=== PATIENT | female | born 1995 | race Caucasian/White ===

== ENCOUNTER 2024-04-14 16:53 | Emergency (ER) | payer SELFPAY ==
[2024-04-14 17:00] VITALS: BP 134/70; PULSE 95; TEMP 37.1; O2SAT 99; BMI 42.3
--- NOTE | 2024-04-14 17:07 | US_ITS ---
The [address] [address] Patient Name: SARAH EMERY MRN: [id number] date: 1995 Sex: F Assigned Patient Location: ER Current Patient Location: Accession/Order Number: [id number] Exam Date: 04/14/2024 17:55 Report Date: 04/14/2024 19:14 At the request of: DONTE ORNELAS Procedure: US venous doppler LE RT EXAM: US venous doppler LE RT HISTORY: right leg swelling COMPARISON: None. TECHNIQUE: Multiple sonographic images of the deep veins of the right lower extremity were obtained, supplemented with Doppler. FINDINGS: The deep veins of the lower extremity are fairly well visualized from the groin to the mid calf. No filling defect is identified to indicate a thrombus. There is normal compression augmentation to flow throughout. Slightly distal in the lower calf is a focal area of tenderness which demonstrates some edema without a cystic or solid mass. US/US venous doppler LE RT IMPRESSION: There is no direct or indirect evidence of deep vein thrombosis in the right lower extremity at this time. Electronically authenticated by: SHEKHAR RAMEY Date: 04/14/2024 19:14
--- NOTE | 2024-04-14 17:09 | ED_ITS ---
HPI - Extremity Problem General Chief complaint: Extremity Problem, Nontraumatic Stated complaint: Lower Extremity Pain, Bite Time Seen by Provider: 04/14/24 16:54 Source: patient Mode of arrival: walk-in Limitations: no limitations History of Present Illness HPI Narrative: Patient is a 28-year-old female who presents to the emergency department for evaluation of right lower extremity swelling and redness for the last week. She states initially it started as a small firm red area that was itching and burning. She states in the last several days the swelling has gotten significantly worse. No fevers or vomiting. She is not diabetic. She denies a possibility of . No medications taken prior to arrival. Related Data Previous Rx's ?Medication ?Instructions ?Recorded cephalexin 500 mg capsule 500 mg PO Q8H 10 days #30 caps 04/14/24 hydroxyzine HCl 25 mg tablet 25 mg PO Q6H PRN itching #20 tabs 04/14/24 ketorolac 10 mg tablet 10 mg PO TID PRN pain #10 tabs 04/14/24 ondansetron 4 mg disintegrating 4 mg PO Q6H PRN nausea and 04/14/24 tablet vomiting #12 tabs sulfamethoxazole 800 1 tab PO BID 10 days #20 tabs 04/14/24 mg-trimethoprim 160 mg tablet (Bactrim DS) Allergies Allergy/AdvReac Type Severity Reaction Status Date / Time No Known Drug Allergies Allergy Verified 04/14/24 17:00 Review of Systems ROS Constitutional Denies: fever or chills Ears, nose, mouth, and throat Denies: throat pain or nasal congestion Respiratory Denies: shortness of breath Gastrointestinal Denies: nausea or vomiting Musculoskeletal Denies: back pain or neck pain Integumentary/Breast Denies: rash Hematologic/Lymphatic Denies: easy bruising or easy bleeding PFSH PFSH Social History Little interest or pleasure in doing things: not at all Feeling down, depressed, or hopeless: not at all Exam Narrative Exam Narrative: Gen.: Awake, alert, in no distress Head: Normocephalic, atraumatic ENT: Moist mucous membranes Respiratory: No respiratory distress Extremities: Right lower extremity is moderately edematous compared to the left lower extremity distal to the knee. Calves are soft and nontender bilaterally. Right distal calf with anterior area of erythema and induration, no fluctuance. No open wounds or drainage. Faint blanching erythema extending around the distal calf. No extension over the ankle or foot of the right lower extremity. No red streaking to the knee proximally Psych: Normal mood and affect Neuro: No focal neuro deficit Skin: Warm, dry, intact Constitutional Vital Signs, click to edit/add: Last Vital Signs Temp 98.7 F 04/14/24 17:00 Pulse 88 04/14/24 18:44 Resp 20 04/14/24 18:44 BP 134/70 04/14/24 17:00 Pulse Ox 9 L 04/14/24 18:44 O2 Del Method Room Air 04/14/24 18:44 Course Vital Signs Vital signs: Vital Signs Temperature 98.7 F 04/14/24 17:00 Pulse Rate 95 H 04/14/24 17:00 Respiratory Rate 18 04/14/24 17:00 Blood Pressure 134/70 04/14/24 17:00 Pulse Oximetry 99 04/14/24 17:00 Oxygen Delivery Method Room Air 04/14/24 17:00 Temperature 98.7 F 04/14/24 17:00 Pulse Rate 88 04/14/24 18:44 Respiratory Rate 20 04/14/24 18:44 Blood Pressure 134/70 04/14/24 17:00 Pulse Oximetry 9 L 04/14/24 18:44 Oxygen Delivery Method Room Air 04/14/24 18:44 MDM - Extremity (Nontraumatic) MDM Narrative Medical decision making narrative: Patient treated with IV Ancef, Toradol and Solu-Medrol in the ER. Exam is consistent with cellulitis of the right lower extremity. Ultrasound is unremarkable and lab studies show elevated inflammatory markers with white blood cell count 12 and normal lactic acid. Patient will be treated with Bactrim, Keflex, Atarax for itching and Toradol for comfort. She was encouraged to elevate the leg. Follow-up with PCP and return to the emergency department if symptoms change or worsen SUPERVISED APC VISIT, PHYSICIAN ATTESTATION: Based on the medical record the care appears appropriate. ? Medical Records Attestation: I reviewed the patient's medical records. Lab Data Attestation: I reviewed the patient's lab results. Labs: Lab Results 09/17/24 09/17/24 Range/Units 17:28 17:43 WBC 12.0 H (4.0-11.0) 10^3/uL RBC 4.44 (4.20-5.40) 10^6/uL Hgb 13.5 (12.0-16.0) g/dL Hct 40.7 (36.0-48.0) % MCV 91.7 (81.0-99.0) fL MCH 30.4 (26.7-34.0) pg MCHC 33.2 (29.9-35.2) g/dL RDW 13.1 (11.0-15.0) % Plt Count 287 (150-450) 10^3/uL MPV 9.8 (9.5-13.5) fL Neut % (Auto) 79.5 H (43.0-75.0) % Lymph % (Auto) 14.6 L (20.5-60.0) % [place] % (Auto) 4.5 (1.7-12.0) % Eos % (Auto) 0.3 L (0.9-7.0) % Baso % (Auto) 0.3 (0.2-2.0) % Neut # (Auto) 9.5 H (1.4-6.5) 10^3/uL Lymph # (Auto) 1.8 (1.2-3.8) 10^3/uL [place] # (Auto) 0.5 (0.3-0.8) 10^3/uL Eos # (Auto) 0.0 (0.0-0.7) 10^3/uL Baso # (Auto) 0.0 (0.0-0.1) 10^3/uL Abs Immat Gran (auto) 0.10 H (0.00-0.03) 10^3/uL Imm/Tot Granulo (auto) 0.8 H (0.0-0.5) % ESR 52 H (<=20) mm/hr Sodium 134 L (136-145) mmol/L Potassium 3.6 (3.5-5.1) mmol/L Chloride 102 (98-107) mmol/L Carbon Dioxide 25.9 (21.0-32.0) mmol/L Anion Gap 9.7 BUN 9.0 (7.0-18.0) mg/dL Creatinine 0.74 (0.55-1.02) mg/dL Est GFR ( Amer) >60 (>=60) Est GFR (Non-Af Amer) >60 (>=60) BUN/Creatinine Ratio 12.2 Glucose 83 (74-106) mg/dL Lactate 0.9 (0.4-2.0) mmol/L Calcium 8.6 (8.5-10.1) mg/dL Total Bilirubin 0.3 (0.2-1.0) mg/dL AST 18 (15-37) U/L ALT 20 (14-59) U/L Alkaline Phosphatase 102 (46-116) U/L C-Reactive Protein 2.72 H (<=0.50) mg/dL Total Protein 7.2 (6.4-8.2) g/dL Albumin 3.5 (3.4-5.0) g/dL Globulin 3.7 g/dL Albumin/Globulin Ratio 0.9 Imaging Data Venous US: Radiologist's impression: ITS Impressions Venous Doppler Study 04/14/24 17:07 IMPRESSION: There is no direct or indirect evidence of deep vein thrombosis in the right lower extremity at this time. Electronically authenticated by: SHEKHAR RAMEY Date: 04/14/2024 19:14 Discharge Plan Discharge Chief Complaint: Extremity Problem, Nontraumatic Clinical Impression: Cellulitis Patient Disposition: Home, Self-Care Time of Disposition Decision: 18:35 Condition: Good Prescriptions / Home Meds: New sulfamethoxazole-trimethoprim [Bactrim DS] 800-160 mg tablet 1 tab PO BID 10 Days Qty: 20 0RF ketorolac 10 mg tablet 10 mg PO TID PRN (Reason: pain) Qty: 10 0RF cephalexin 500 mg capsule 500 mg PO Q8H 10 Days Qty: 30 0RF hydroxyzine HCl 25 mg tablet 25 mg PO Q6H PRN (Reason: itching) Qty: 20 0RF ondansetron 4 mg tablet,disintegrating 4 mg PO Q6H PRN (Reason: nausea and vomiting) Qty: 12 0RF Print Language: Kazakh Instructions: Cellulitis (ED), Warm Compress or Soak (ED) Referrals: Mark Gray MD [Primary Care Provider] - 1 week Discharge Date/Time: 04/14/24 18:59
[2024-04-14] MEDS: CEFAZOLIN SODIUM/DEXTROSE,ISO 2 GM/50 ML PIGGYBACK IV (17:37)
[2024-04-14] MEDS: KETOROLAC TROMETHAMINE 30 MG/ML VIAL IVP (17:38)
[2024-04-14] MEDS: METHYLPREDNISOLONE SOD SUCC PF 125 MG/2 ML VIAL IVP (17:38)
[2024-04-14 17:39] LABS: Basophils Percent Auto 0.3 % (0.2-2.0); Eosinophils Percent Auto 0.3 % (0.9-7.0); Hematocrit 40.7 % (36.0-48.0); Hemoglobin 13.5 g/dL (12.0-16.0); Immature Granulocytes Pct Auto 0.8 % (0.0-0.5); Lymphocytes Absolute Auto 1.8 10^3/uL (1.2-3.8); Lymphocytes Percent Auto 14.6 % (20.5-60.0); Mean Corpuscular HGB Conc 33.2 g/dL (29.9-35.2); Mean Corpuscular Hemoglobin 30.4 pg (26.7-34.0); Mean Corpuscular Volume 91.7 fL (81.0-99.0); Mean Platelet Volume 9.8 fL (9.5-13.5); Monocytes Absolute Auto 0.5 10^3/uL (0.3-0.8); Monocytes Percent Auto 4.5 % (1.7-12.0); Neutrophils Absolute Auto 9.5 10^3/uL (1.4-6.5); Neutrophils Percent Auto 79.5 % (43.0-75.0); Platelet Count 287 10^3/uL (150-450); Red Blood Count 4.44 10^6/uL (4.20-5.40); Red Cell Distribution Width 13.1 % (11.0-15.0)
[2024-04-14 18:04] LABS: Lactate/Lactic Acid 0.9 mmol/L (0.4-2.0)
[2024-04-14 18:17] LABS: Erythrocyte Sedimentation Rate 52 mm/hr (<=20)
[2024-04-14 18:22] LABS: Alanine Aminotransferase 20 U/L (14-59); Albumin Globulin Ratio 0.9; Albumin Level 3.5 g/dL (3.4-5.0); Alkaline Phosphatase 102 U/L (46-116); Anion Gap 9.7; Aspartate Amino Transferase 18 U/L (15-37); BUN Creatinine Ratio 12.2; Bilirubin Total 0.3 mg/dL (0.2-1.0); C Reactive Protein 2.72 mg/dL (<=0.50); Calcium 8.6 mg/dL (8.5-10.1); Carbon Dioxide 25.9 mmol/L (21.0-32.0); Chloride 102 mmol/L (98-107); Estimated GFR (African America >60 (>=60); Estimated GFR (Non-African Ame >60 (>=60); Globulin 3.7 g/dL; Glucose 83 mg/dL (74-106); Potassium 3.6 mmol/L (3.5-5.1); Sodium 134 mmol/L (136-145); Total Protein 7.2 g/dL (6.4-8.2)
[2024-04-14 18:44] VITALS: PULSE 88; O2SAT 9
== END 2024-04-14 18:59 | disposition home or self-care (01) ==
PROVIDERS: Physician Assistant; Emergency Provider Emergency Medicine; PCP Family Medicine
DX: L03.115 Cellulitis of right lower limb (principal)
CPT/HCPCS: 36415; 80053; 83605; 85025; 85652; 86140; 93971; 96365; 96375; 99285; J0690; J1885; J2919

== ENCOUNTER 2024-04-20 07:11 | Observation (INO) | payer SELFPAY ==
[2024-04-20] VITALS (23 sets, daily range): BP systolic 92–170; BP diastolic 59–128; PULSE 70–129; TEMP 36.7–38.7; O2SAT 92–100; BMI 42.4; BMI 39.5
--- NOTE | 2024-04-20 07:29 | ECG_ITS ---
The [facility] Test Date: 2024-04-20 Pat Name: SARAH EMERY Department: Room: - Gender: Female District Sales Representative: : 1995 Requested By: EDY THAKUR Order Number: [id number] Reading MD: JASWANT LEON Measurements Intervals [place] Rate: 117 P: 49 ND: 118 QRS: 57 QRSD: 88 T: 45 QT: 292 QTc: 361 Interpretive Statements 1120 Sinus tachycardia 2210 Short ND interval 9150 abnormal ECG No previous ECG available for comparison Electronically Signed On 04-20-2024 22:37:51 EDT by JASWANT LEON
[2024-04-20 07:35] LABS: Hematocrit 40.9 % (36.0-48.0); Hemoglobin 13.9 g/dL (12.0-16.0); Mean Corpuscular Hemoglobin 29.9 pg (26.7-34.0); Mean Platelet Volume 10.1 fL (9.5-13.5); Platelet Count 210 10^3/uL (150-450); Red Blood Count 4.65 10^6/uL (4.20-5.40); Red Cell Distribution Width 13.2 % (11.0-15.0); White Blood Count 6.8 10^3/uL (4.0-11.0)
[2024-04-20 07:49] LABS: INR 1.11; Prothrombin Time 11.6 sec (9.0-11.6)
[2024-04-20 07:52] LABS: HCG Qualitative NEGATIVE (NEGATIVE); Internal Control Within Normal Limits
[2024-04-20] MEDS: METHYLPREDNISOLONE SOD SUCC PF 125 MG/2 ML VIAL IVP (07:52)
[2024-04-20] MEDS: ONDANSETRON PF 4 MG/2 ML VIAL IV (07:52)
[2024-04-20] MEDS: 0.9 % SODIUM CHLORIDE 1,000 ML 1000 ML IV (07:52)
[2024-04-20 07:53] LABS: Alanine Aminotransferase 19 U/L (14-59); Albumin Globulin Ratio 0.8; Albumin Level 3.3 g/dL (3.4-5.0); Alkaline Phosphatase 94 U/L (46-116); Aspartate Amino Transferase 21 U/L (15-37); BUN Creatinine Ratio 12.2; Bilirubin Total 0.4 mg/dL (0.2-1.0); Calcium 8.1 mg/dL (8.5-10.1); Carbon Dioxide 23.8 mmol/L (21.0-32.0); Chloride 98 mmol/L (98-107); Estimated GFR (African America >60 (>=60); Estimated GFR (Non-African Ame >60 (>=60); Globulin 3.9 g/dL; Glucose 109 mg/dL (74-106); Potassium 3.8 mmol/L (3.5-5.1); Sodium 131 mmol/L (136-145); Total Protein 7.2 g/dL (6.4-8.2)
[2024-04-20] MEDS: CLINDAMYCIN PHOSPHATE/D5W 600 MG/50 ML PREMIX 100 MG IV ×3 (07:53→19:42)
[2024-04-20 07:56] LABS: Lactate/Lactic Acid 1.6 mmol/L (0.4-2.0)
--- NOTE | 2024-04-20 07:56 | ED.SKABFB1 ---
HPI - Skin/Abscess/Foreign Bdy General Chief complaint: Skin/Abscess/Foreign Body Stated complaint: skin, recheck Time Seen by Provider: 04/20/24 07:18 History of Present Illness HPI narrative: The patient presented to us with a cellulitis history that she was diagnosed with almost 6 days ago, she was then started on Bactrim, she is coming to us with worsening of her redness on the right leg in addition to rash developing all over her body, mostly the upper back and chest. The patient mentioned that the rash on her right leg that started initially was itching and the redness got worse over the last 24 hours, patient also developed fever almost 2 days ago The patient denies any abdominal pain or chest pain but she did had some nausea and she was still able to tolerate p.o. intake over the last few days although she had nausea and vomiting yesterday after eating Related Data Previous Rx's ?Medication ?Instructions ?Recorded cephalexin 500 mg capsule 500 mg PO Q8H 10 days #30 caps 04/14/24 hydroxyzine HCl 25 mg tablet 25 mg PO Q6H PRN itching #20 tabs 04/14/24 ketorolac 10 mg tablet 10 mg PO TID PRN pain #10 tabs 04/14/24 ondansetron 4 mg disintegrating 4 mg PO Q6H PRN nausea and 04/14/24 tablet vomiting #12 tabs sulfamethoxazole 800 1 tab PO BID 10 days #20 tabs 04/14/24 mg-trimethoprim 160 mg tablet (Bactrim DS) Allergies Allergy/AdvReac Type Severity Reaction Status Date / Time No Known Drug Allergies Allergy Verified 04/14/24 17:00 Review of Systems ROS Status of ROS 10 or more systems reviewed and unremarkable except as noted in history and below [facility] Social History Little interest or pleasure in doing things: not at all Feeling down, depressed, or hopeless: not at all Exam Narrative Exam Narrative: Nurses notes and vital signs reviewed and patient is not hypoxic. General: Well-appearing and in no apparent distress. Skin: Warm, dry, no pallor noted. No rash. Head: Normocephalic, atraumatic. Neck: Supple, non-tender. Eye: Pupils are equal, round and EOMI. No scleral icterus. Ears, Nose, Mouth, and Throat: TM are clear, no nasal mucosal hypertrophy. Oral mucosa is moist, no posterior oropharynx erythema, uvula is mid-line Cardiovascular: Regular Rate and Rhythm without murmur, gallop or rub. Respiratory: No accessory muscle use or respiratory distress. Lungs are clear to auscultation, no wheezing, rales or rhonchi Chest Wall: no tenderness Back: No midline thoracic or lumbar vertebral tenderness. No CVA tenderness GI: Abdomen is soft, non-distended. Normal bowel sounds. No masses appreciated. No tenderness to palpation. No rebound, guarding, or rigidity noted. Neurological: A&O x4. No cranial nerve dysfunction observed. No truncal ataxia. Moves all extremities. Sensation intact. Psychiatric: Cooperative and interactive. Normal mood and affect. Skin examination: The patient have macular rash on the upper chest as well as upper back posteriorly and it is more of a redness She also had in the right lower extremity redness extending from the ankle mostly the lateral malleolus up to the mid tibia with an area of possible insect bite on the proximal level of the right lateral malleolus almost 5 cm approximately with no abscess or any fluctuation, but there is hardening of the skin Constitutional Vital Signs, click to edit/add: Last Vital Signs Temp 101.7 F H 04/20/24 07:15 Pulse 117 H 04/20/24 07:40 Resp 25 H 04/20/24 07:40 BP 98/74 04/20/24 07:37 Pulse Ox 98 04/20/24 07:40 O2 Del Method Room Air 04/20/24 07:15 Course Vital Signs Vital signs: Vital Signs Temperature 101.7 F H 04/20/24 07:15 Pulse Rate 129 H 04/20/24 07:15 Respiratory Rate 18 04/20/24 07:15 Blood Pressure 118/82 04/20/24 07:15 Pulse Oximetry 97 04/20/24 07:15 Oxygen Delivery Method Room Air 04/20/24 07:15 Temperature 101.7 F H 04/20/24 07:15 Pulse Rate 117 H 04/20/24 07:40 Respiratory Rate 25 H 04/20/24 07:40 Blood Pressure 98/74 04/20/24 07:37 Pulse Oximetry 98 04/20/24 07:40 Oxygen Delivery Method Room Air 04/20/24 07:15 MDM - Skin/Abscess/Foreign Bdy MDM Narrative Medical decision making narrative: The patient initial presentation was concerning for sepsis specially with her presenting with fever and tachycardia and already have a source of infection considering her right leg cellulitis It was noted that the patient also had this redness and rash on the upper back as well as upper chest but there was no associated itching with that rash. The patient was started IV fluid as well as Zosyn and clindamycin to avoid using vancomycin because of the patient skin redness and rash The patient lactic acid was 1.6 heart rate responding to IV fluid EKG was showing sinus tachycardia with a heart rate [address] elevation or depression The patient x-ray of the right leg shows soft tissue swelling Right now the patient will be admitted for further treatment of acute cellulitis with failed outpatient treatment with p.o. antibiotic Patient case was discussed with Dr. Gray and he agreed with above-mentioned plan Lab Data Labs: Lab Results 04/20/24 Range/Units 07:25 WBC 6.8 (4.0-11.0) 10^3/uL RBC 4.65 (4.20-5.40) 10^6/uL Hgb 13.9 (12.0-16.0) g/dL Hct 40.9 (36.0-48.0) % MCV 88.0 (81.0-99.0) fL MCH 29.9 (26.7-34.0) pg MCHC 34.0 (29.9-35.2) g/dL RDW 13.2 (11.0-15.0) % Plt Count 210 (150-450) 10^3/uL MPV 10.1 (9.5-13.5) fL Seg Neuts % (Manual) 81.0 H (43.0-75.0) Band Neutrophils % 6.0 H (0-5) % Lymphocytes % (Manual) 8.0 L (20.5-60.0) % Monocytes % (Manual) 1.0 L (1.7-12.0) % Eosinophils % (Manual) 3.0 (0.9-7.0) % Basophils % (Manual) 0.0 L (0.2-2.0) % Metamyelocytes % 1.0 Neutrophils # (Manual) 5.50 (1.4-6.5) 10^3/uL Band Neutrophils # 0.4 H (0.0-0.3) 10^3/uL Lymphocytes # (Manual) 0.54 L (1.20-3.80) 10^3/uL Monocytes # (Manual) 0.06 L (0.30-0.80) 10^3/uL Eosinophils # (Manual) 0.20 (0.00-0.70) 10^3/uL Basophils # (Manual) 0.00 (0.00-0.10) 10^3/uL Metamyelocytes # 0.06 PT 11.6 (9.0-11.6) sec INR 1.11 Sodium 131 L (136-145) mmol/L Potassium 3.8 (3.5-5.1) mmol/L Chloride 98 (98-107) mmol/L Carbon Dioxide 23.8 (21.0-32.0) mmol/L Anion Gap 13.0 BUN 12.0 (7.0-18.0) mg/dL Creatinine 0.98 (0.55-1.02) mg/dL Est GFR ( Amer) >60 (>=60) Est GFR (Non-Af Amer) >60 (>=60) BUN/Creatinine Ratio 12.2 Glucose 109 H (74-106) mg/dL Lactate 1.6 (0.4-2.0) mmol/L Calcium 8.1 L (8.5-10.1) mg/dL Total Bilirubin 0.4 (0.2-1.0) mg/dL AST 21 (15-37) U/L ALT 19 (14-59) U/L Alkaline Phosphatase 94 (46-116) U/L Total Protein 7.2 (6.4-8.2) g/dL Albumin 3.3 L (3.4-5.0) g/dL Globulin 3.9 g/dL Albumin/Globulin Ratio 0.8 Serum HCG, Qual Negative (NEGATIVE) Discharge Plan Discharge Chief Complaint: Skin/Abscess/Foreign Body Clinical Impression: Cellulitis, Rash Patient Disposition: Admitted as Observation Time of Disposition Decision: 09:20
--- NOTE | 2024-04-20 08:18 | XR_ITS ---
The [address] [address] Patient Name: SARAH EMERY MRN: [id number] date: 1995 Sex: F Assigned Patient Location: ER Current Patient Location: ER Accession/Order Number: [id number] Exam Date: 04/20/2024 08:11 Report Date: 04/20/2024 08:58 At the request of: SIMBA ONEILL Procedure: XR tibia fibula RT 2V PROCEDURE: XR tibia fibula RT 2V COMPARISON: None. HISTORY: infection FINDINGS: BONES:No acute fracture or dislocation. Degenerative changes of the visualized foot with marginal osteophyte formation. There is asymmetry of the tibiotalar joint with widening laterally SOFT TISSUES:Mild soft tissue swelling EFFUSION:None visible. OTHER: Negative. XR/XR tibia fibula RT 2V IMPRESSION: Soft tissue swelling Electronically authenticated by: GERALD EUGENE Date: 04/20/2024 08:58
[2024-04-20 08:37] LABS: Band Neutrophils Absolute 0.4 10^3/uL (0.0-0.3); Lymphocytes Absolute Manual 0.54 10^3/uL (1.20-3.80); Monocytes Absolute Manual 0.06 10^3/uL (0.30-0.80)
[2024-04-20 08:38] LABS: Metamyelocytes Absolute Manual 0.06
[2024-04-20] MEDS: PIPERACILLIN SODIUM/TAZOBACTAM 3.375 GM in 0.9 % SODIUM CHLORIDE 50 ML IV ×2 (08:39→16:02)
--- NOTE | 2024-04-20 12:23 | P.HP_ITS ---
HPI H&P: HPI History of Present Illness Chief complaint: skin, recheck, CELLULITUS Narrative: Patient has been treated for the last 2 weeks as an outpatient with oral antibiotics for right lower extremity cellulitis. Presented to the emergency room with more of a diffuse rash. This looks like a drug reaction likely from the sulfa. But the cellulitis has progressed from a area about silver dollar sized no covering most of her right lower calf. Some petechiae as well. Edema, mild calor When I saw patient up in the medical surgical floor, she was resting comfortably in bed. She did have some nausea but that is overall better. Fevers at home, over 101 here in the emergency room. Opioid HPI Opioid Management Most Recent Pain and Opioid Data: Last Pain Scale 2 04/14/24 17:38 Last Pain Assessment 04/20/24 11:54 Last MAR Pain Assessment 04/14/24 17:38 Last ORT Total Score 2 04/20/24 10:04 Last ORT Risk Category Low Risk 04/20/24 10:04 Review of Systems ROS Status of ROS 10 or more systems reviewed and unremark able except as noted in history and below PFSH PFSH Family History (Updated 04/20/24 @ 10:11 by Lyudmila Negron RN) Grandmother Family history of COPD (chronic obstructive pulmonary disease) Grandfather Family history of cancer Family history of diabetes mellitus Mother Family history of hypertension Social History (Updated 04/20/24 @ 10:13 by Lyudmila Negron RN) Within the past year, how often did you have a drink containing alcohol: monthly or less Smoking status: Current some day smoker Do you use any of these nicotine containing products: vaping products Non-prescribed substance use: cannabis (any form) Highest level of school completed/degree received: high school graduate Little interest or pleasure in doing things: not at all Feeling down, depressed, or hopeless: not at all Meds Home Medications and Allergies Home Medications ?Medication ?Instructions ?Recorded ?Confirmed ?Type cephalexin 500 mg capsule 500 mg PO Q8H 10 days #30 caps 04/14/24 04/20/24 Rx sulfamethoxazole 800 1 tab PO BID 10 days #20 tabs 04/14/24 04/20/24 Rx mg-trimethoprim 160 mg tablet (Bactrim DS) Allergies Allergy/AdvReac Type Severity Reaction Status Date / Time No Known Drug Allergies Allergy Verified 04/14/24 17:00 Exam Constitutional Vital Signs, click to edit/add: Last Vital Signs Temp 100.5 F H 04/20/24 10:04 Pulse 95 H 04/20/24 10:04 Resp 16 04/20/24 10:04 BP 103/69 04/20/24 10:04 Pulse Ox 95 04/20/24 10:04 O2 Del Method Room Air 04/20/24 10:04 Documenting provider has reviewed patient's vital signs: yes Common normals: no apparent distress Chest Common normals: inspection of chest normal Respiratory Common normals: normal respiratory effort and no retractions Cardio Common normals: regular rate and regular rhythm GI Common normals: Normal to inspection, nondistended, normoactive bowel sounds present Extremity Common normals: abnormal to inspection (Diffuse erythematous rash consistent with drug reaction,) Other: Progressive cellulitis with petechiae right lower extremity. Mild calor Results Labs Labs: Short CBC 04/20/24 Range/Units 07:25 WBC 6.8 (4.0-11.0) 10^3/uL Hgb 13.9 (12.0-16.0) g/dL Hct 40.9 (36.0-48.0) % Plt Count 210 (150-450) 10^3/uL BMP 04/20/24 07:25 Sodium 131 L Potassium 3.8 Chloride 98 Carbon Dioxide 23.8 BUN 12.0 Creatinine 0.98 Glucose 109 H Calcium 8.1 L Liver Function 04/20/24 Range/Units 07:25 Total Bilirubin 0.4 (0.2-1.0) mg/dL AST 21 (15-37) U/L ALT 19 (14-59) U/L Alkaline Phosphatase 94 (46-116) U/L Albumin 3.3 L (3.4-5.0) g/dL Assessment and Plan Assessment and Plan (1) Cellulitis: (2) Rash: Plan Admission findings: Fever 101.7, sinus tachycardia, respiratory distress, relative hypotension with blood pressure 98/74, leukocytosis previously, that is improved today. Significantly elevated CRP and ESR and mild hyponatremia. Cellulitis right lower extremity with failed outpatient treatment. She has been on cephalexin and Bactrim without improvement. She require IV antibiotics at this point. Start patient on Zosyn and clindamycin. Blood cultures pending. Monitor CRP and daily white blood cell count. Check ultrasound of right lower extremity and repeat lactate. Lactate prior to admission was not significant elevated, still normal in ER but doubled from previous Hyponatremia and borderline hypotension consistent with mild dehydration-IV fluids Admission status: Patient with failed outpatient treatment. Will start patient on IV antibiotics. Start patient off as observation as there is a 50-50 chance she will be discharged to home with only 1 midnight of medically necessary Treatment. If continues to spike fevers, will change patient to inpatient status
--- NOTE | 2024-04-20 12:26 | US_ITS ---
The [address] [address] Patient Name: SARAH EMERY MRN: [id number] date: 1995 Sex: F Assigned Patient Location: MS Current Patient Location: MS Accession/Order Number: [id number] Exam Date: 04/20/2024 14:06 Report Date: 04/21/2024 10:13 At the request of: EDY THAKUR Procedure: US venous doppler LE RT CLINICAL DATA: Edema PROCEDURE: Right lower extremity venous duplex ultrasound. TECHNIQUE: Harrison-scale, color flow, and waveform spectral analysis was performed of the right lower extremity. FINDINGS: The right common femoral, profunda femoral, femoral, and popliteal veins were compressible. The saphenous vein was compressible. No venous thrombosis was seen. The veins fill with color Doppler. Augmentation was normal. Edema is noted. Note is also made of an enlarged lymph node measuring 4.3 x 1.3 x 2.4 cm. US/US venous doppler LE RT IMPRESSION: 1. No acute lower extremity deep venous thrombosis. 2. No superficial venous thrombosis. Electronically authenticated by: Sushant PEREZ Date: 04/21/2024 10:13
[2024-04-20 12:51] LABS: Eosinophils Absolute Auto 0.2 10^3/uL (0.0-0.7); Eosinophils Percent Auto 3.3 % (0.9-7.0); Hematocrit 37.7 % (36.0-48.0); Hemoglobin 13.1 g/dL (12.0-16.0); Immature Granulocytes Abs Auto 0.03 10^3/uL (0.00-0.03); Immature Granulocytes Pct Auto 0.5 % (0.0-0.5); Lymphocytes Absolute Auto 0.3 10^3/uL (1.2-3.8); Lymphocytes Percent Auto 4.8 % (20.5-60.0); Mean Corpuscular HGB Conc 34.7 g/dL (29.9-35.2); Mean Corpuscular Hemoglobin 30.7 pg (26.7-34.0); Mean Corpuscular Volume 88.3 fL (81.0-99.0); Mean Platelet Volume 10.2 fL (9.5-13.5); Monocytes Absolute Auto 0.1 10^3/uL (0.3-0.8); Monocytes Percent Auto 1.3 % (1.7-12.0); Neutrophils Absolute Auto 5.7 10^3/uL (1.4-6.5); Neutrophils Percent Auto 90.1 % (43.0-75.0); Platelet Count 200 10^3/uL (150-450); Red Blood Count 4.27 10^6/uL (4.20-5.40); Red Cell Distribution Width 13.2 % (11.0-15.0); White Blood Count 6.3 10^3/uL (4.0-11.0)
[2024-04-20] MEDS: ACETAMINOPHEN 500 MG TABLET 1000 MG PO (13:10)
[2024-04-20 13:12] LABS: Lactate/Lactic Acid 0.9 mmol/L (0.4-2.0)
[2024-04-21] MEDS: PIPERACILLIN SODIUM/TAZOBACTAM 3.375 GM in 0.9 % SODIUM CHLORIDE 50 ML IV ×2 (00:06→09:38)
[2024-04-21 00:11] VITALS: BP 93/54; PULSE 79; TEMP 36.7; O2SAT 95
[2024-04-21] MEDS: CLINDAMYCIN PHOSPHATE/D5W 600 MG/50 ML PREMIX 100 MG IV ×2 (02:38→08:59)
[2024-04-21 03:18] VITALS: BP 107/65; PULSE 68; TEMP 36.6; O2SAT 98
[2024-04-21 06:13] LABS: Anion Gap 9.6; BUN Creatinine Ratio 13.9; Calcium 7.9 mg/dL (8.5-10.1); Carbon Dioxide 25.3 mmol/L (21.0-32.0); Chloride 102 mmol/L (98-107); Estimated GFR (African America >60 (>=60); Estimated GFR (Non-African Ame >60 (>=60); Glucose 114 mg/dL (74-106); Potassium 3.9 mmol/L (3.5-5.1); Sodium 133 mmol/L (136-145)
--- NOTE | 2024-04-21 06:39 | P.DS_ITS ---
DS: Providers Provider Date of admission: 04/20/24 09:53 Primary care physician: Mark Gray MD Consults: 04/20/24 12:24 Consult to Pharmacy Routine Consulting Provider: Reason for consultation: Please [place] me when Med Rec is Updated Has provider been notified: No DS: Diagnosis Discharge Diagnosis (1) Cellulitis: (2) Rash: Plan Admission findings: Fever 101.7, sinus tachycardia, respiratory distress, relative hypotension with blood pressure 98/74, leukocytosis previously, that is improved today. Significantly elevated CRP and ESR and mild hyponatremia. Cellulitis right lower extremity with failed outpatient treatment. Not progressing at the time of discharge Hyponatremia and borderline hypotension consistent with mild dehydration- improving at the time of discharge Admission status: Patient with failed outpatient treatment. Will start patient on IV antibiotics. Start patient off as observation as there is a 50-50 chance she will be discharged to home with only 1 midnight of medically necessary Treatment. If continues to spike fevers, will change patient to inpatient status ? DS: Summary Hospital Course Hospital Course: Patient been treated with 2 antibiotics as an outpatient for cellulitis of right lower extremity, cellulitis progressed up to about mid calf. Patient then started develop a diffuse rash which may be more of a drug reaction to the sulfa. Patient was placed on IV antibiotics, she has no progression of her cellulitis overnight. No more fevers. Her temperature was 101.7 on admission. Lactate was negative. White blood cell count normal. At this point if she has no change in symptoms no further fevers she will be discharged to home in improving condition. Medications to this. Follow-up with me in the office later this week. Status at Discharge Overall status at discharge: patient is not back to baseline Time Spent with Patient Time attestation: Total time spent providing and/or coordinating discharge services: Time spent: greater than 30 minutes Exam Constitutional Vital Signs, click to edit/add: Last Vital Signs Temp 97.9 F 04/21/24 03:18 Pulse 68 04/21/24 03:18 Resp 20 04/21/24 03:18 BP 107/65 04/21/24 03:18 Pulse Ox 98 04/21/24 03:18 O2 Del Method Room Air 04/21/24 00:11 Documenting provider has reviewed patient's vital signs: yes Common normals: no apparent distress Chest Common normals: inspection of chest normal Respiratory Common normals: normal respiratory effort and no retractions Cardio Common normals: regular rate and regular rhythm GI Common normals: Normal to inspection, nondistended, normoactive bowel sounds present Extremity Common normals: abnormal to inspection (Diffuse erythematous rash consistent with drug reaction,-no progression) Other: Progressive cellulitis with petechiae right lower extremity. Mild calor-no progression outside the line of demarcation DS: Data Data Completed and Pending Labs on day of discharge: Labs from last 24 hours 04/21/24 04/20/24 04/20/24 05:35 12:43 07:25 WBC 6.3 6.8 RBC 4.27 4.65 Hgb 13.1 13.9 Hct 37.7 40.9 MCV 88.3 88.0 MCH 30.7 29.9 MCHC 34.7 34.0 RDW 13.2 13.2 Plt Count 200 210 MPV 10.2 10.1 Neut % (Auto) 90.1 H Lymph % (Auto) 4.8 L [place] % (Auto) 1.3 L Eos % (Auto) 3.3 Baso % (Auto) 0.0 L Neut # (Auto) 5.7 Lymph # (Auto) 0.3 L [place] # (Auto) 0.1 L Eos # (Auto) 0.2 Baso # (Auto) 0.0 Abs Immat Gran (auto) 0.03 Seg Neuts % (Manual) 81.0 H Band Neutrophils % 6.0 H Lymphocytes % (Manual) 8.0 L Monocytes % (Manual) 1.0 L Eosinophils % (Manual) 3.0 Basophils % (Manual) 0.0 L Metamyelocytes % 1.0 Imm/Tot Granulo (auto) 0.5 Neutrophils # (Manual) 5.50 Band Neutrophils # 0.4 H Lymphocytes # (Manual) 0.54 L Monocytes # (Manual) 0.06 L Eosinophils # (Manual) 0.20 Basophils # (Manual) 0.00 Metamyelocytes # 0.06 PT 11.6 INR 1.11 Sodium 133 L 131 L Potassium 3.9 3.8 Chloride 102 98 Carbon Dioxide 25.3 23.8 Anion Gap 9.6 13.0 BUN 10.0 12.0 Creatinine 0.72 0.98 Est GFR ( Amer) >60 >60 Est GFR (Non-Af Amer) >60 >60 BUN/Creatinine Ratio 13.9 12.2 Glucose 114 H 109 H Lactate 0.9 1.6 Calcium 7.9 L 8.1 L Total Bilirubin 0.4 AST 21 ALT 19 Alkaline Phosphatase 94 C-Reactive Protein 5.40 H Total Protein 7.2 Albumin 3.3 L Globulin 3.9 Albumin/Globulin Ratio 0.8 Serum HCG, Qual Negative Discharge Plan Discharge Disposition: Home, Self-Care Discharge Medications: New clindamycin HCl 300 mg capsule 300 mg PO Q6H 10 Days Qty: 40 0RF levofloxacin 750 mg tablet 750 mg PO DAILY 10 Days Qty: 10 0RF Discontinued sulfamethoxazole-trimethoprim [Bactrim DS] 800-160 mg tablet 1 tab PO BID 10 Days Qty: 20 0RF cephalexin 500 mg capsule 500 mg PO Q8H 10 Days Qty: 30 0RF Print Language: Ecuadorean Forms: Portal Instructions Follow Up Appointments: Follow up on 04/23/24 @ 9:30 am with Aspen Reddy NP in Dr. Gray's office, phone number is [phone] to call or reschedule
[2024-04-21 07:45] VITALS: BP 86/49; PULSE 71; TEMP 36.7; O2SAT 98
[2024-04-21] MEDS: 0.9 % SODIUM CHLORIDE 250 ML 10 ML IV (09:02)
[2024-04-21 10:43] VITALS: O2SAT 97
--- NOTE | 2024-04-22 13:16 | CM.DCFOLLOWU ---
Person spoke with:patient How are you feeling?well How is your pain?none Did you understand your discharge instructions?yes Do you have any questions about your discharge instructions?no Were you given any prescriptions at discharge?yes Were you able to get your prescriptions filled?yes Do you understand how to take your medications as ordered?yes Do you have any questions about your follow up appointment and do you plan to keep your follow up appointment? no questions, follow up reviewed Is there anything else that you would like to discuss?no Questions/Comments/Concerns/Other:none
== END 2024-04-21 11:43 | disposition home or self-care (01) ==
LOC: ER 09:20 → MS 09:57
PROVIDERS: Admitting Provider Family Medicine; Emergency Provider Emergency Medicine; PCP Family Medicine; Visit Provider Family Medicine
DX: L03.115 Cellulitis of right lower limb (principal); R50.9 Fever, unspecified; R00.0 Tachycardia, unspecified; R06.03 Acute respiratory distress; I95.9 Hypotension, unspecified; E87.1 Hypo-osmolality and hyponatremia; R70.0 Elevated erythrocyte sedimentation rate; R79.82 Elevated C-reactive protein (CRP); E86.0 Dehydration; R21 Rash and other nonspecific skin eruption; F17.290 Nicotine dependence, other tobacco product, uncomplicated
CPT/HCPCS: 36415; 73590; 80048; 80053; 83605; 84703; 85007; 85025; 85027; 85610; 86140; 87040; 93005; 93971; 94761; 96365; 96366; 96367; 96368; 96375; 99285; 99406; G0378; J2405; J2543; J2919